=== PATIENT | female | born 1955 | race Two or more races ===

== ENCOUNTER 2022-02-15 13:57 | Emergency (ER) | payer MEDICARE, OTHER ==
[~2022-02-15] VITALS: Ht 157.5 cm; Wt 60.0 kg
[2022-02-15 14:16] VITALS: BP 135/96
[2022-02-15] MEDS ORDERED: MELO-105 MT (18:03)
== END 2022-02-15 18:33 | disposition home or self-care (01) ==
LOC: ER 13:57
DX: M54.30 Sciatica, unspecified side (principal)
CPT/HCPCS: 73502; 99283